=== PATIENT | female | born 1995 | race Caucasian/White ===

== ENCOUNTER 2021-09-17 10:00 | Outpatient (RCR) | payer MEDICAID, SELFPAY | END 2021-09-17 12:24 | disposition home or self-care (01) | LOC: HO.PT 10:00 | PROVIDERS: PCP Internal Medicine; Visit Provider General Practice | DX: M54.50 Low back pain, unspecified (principal) | CPT/HCPCS: 97110; 97161 ==

== ENCOUNTER 2024-04-25 17:35 | Outpatient (REF) | payer MEDICAID, SELFPAY ==
[2024-04-26 08:47] LABS: Bacterial Vaginosis PCR NEGATIVE (Negative); Candida Group PCR NOT DETECTED (Not Detect); Candida glab krusei PCR NOT DETECTED (Not Detect); Trichomonas vaginalis PCR NOT DETECTED (Not Detect)
== END 2024-04-25 17:36 | disposition home or self-care (01) ==
LOC: HO.HHCLNP 17:35
PROVIDERS: Visit Provider Advanced Practice Midwife
DX: N89.8 Other specified noninflammatory disorders of vagina (principal)
CPT/HCPCS: 0352U

== ENCOUNTER 2024-05-10 10:26 | Outpatient (REF) | payer MEDICAID, SELFPAY ==
[2024-05-10 11:16] LABS: MANUAL DIFF FLAG NO
[2024-05-10 11:21] LABS: Basophils Percent Auto 0.6 % (0-2); Eosinophils Absolute Auto 0.1 X10*3/uL (0.0-0.4); Eosinophils Percent Auto 0.9 % (0-4); Hematocrit 41.3 % (37.0-47.0); Hemoglobin 13.5 g/dl (12.0-16.0); Imm Gran Abs Auto 0.01 X10*3/uL (0.00-0.03); Imm Gran Pct Auto 0.2 % (0.0-0.4); Lymphocytes Absolute Auto 2.1 X10*3/uL (1.2-4.9); Lymphocytes Percent Auto 39.9 % (20-40); Mean Corpuscular HGB Conc 32.7 g/dl (31.0-35.0); Mean Corpuscular Volume 88.6 fL (80.0-98.0); Mean Platelet Volume 10.1 fL (9.4-12.3); Monocytes Absolute Auto 0.4 X10*3/uL (0.1-1.2); Monocytes Percent Auto 7.8 % (2-11); Neutrophils Absolute Auto 2.7 x10*3/uL (2.0-8.3); Neutrophils Percent Auto 50.6 % (45-73); Platelet Count 259 X10*3/uL (160-400); Red Blood Count 4.66 X10*6/uL (4.20-5.50); Red Cell Distribution Width 12.5 % (11.0-16.0); White Blood Count 5.4 X10*3/uL (4.8-10.8)
== END 2024-05-10 10:27 | disposition home or self-care (01) ==
LOC: HO.HHCL 10:26
PROVIDERS: Visit Provider Student in an Organized Health Care Education/Training Program
DX: T14.8XXA Other injury of unspecified body region, initial encounter (principal)
CPT/HCPCS: 36415; 85025

== ENCOUNTER 2024-05-11 10:49 | Outpatient (REF) | payer MEDICAID, SELFPAY ==
--- NOTE | ~2024-05-11 | US_ITS ---
EXAMINATION: US PELVIS CLINICAL INFORMATION: Worsening dysmenorrhea. COMPARISON: None available. TECHNIQUE: Ultrasound of the pelvis is performed using both transabdominal and transvaginal transducers along with Doppler. Transvaginal imaging is performed due to inadequate visualization transabdominally. FINDINGS: Uterus: The uterus is anteverted and measures 7.3 x 3.4 x 5.0 cm. The double wall endometrial thickness is 10 mm. The uterus is smooth in contour and has normal myometrial echogenicity. No visible fibroid. Adnexa: Both ovaries are visualized. There is normal color flow to the adnexa. There is no ovarian torsion. There is a xupmi-ux-badkygco amount of free pelvic fluid. Right ovary measures 2.5 x 2.6 x 1.9 cm for a volume of 8.2 mL cm. Left ovary measures 3.0 x 2.9 x 3.1 cm for a volume of 14.1 mL, which includes a benign 3 cm cyst. US/US pelvic and transvaginal IMPRESSION: No significant abnormality is seen.
== END 2024-05-11 10:50 | disposition home or self-care (01) ==
LOC: HO.US 10:49
PROVIDERS: PCP General Practice; Visit Provider Advanced Practice Midwife
DX: N94.6 Dysmenorrhea, unspecified (principal)
CPT/HCPCS: 76830; 76856

== ENCOUNTER 2025-01-08 | Outpatient (REF) | payer MEDICAID, SELFPAY ==
[2025-01-17 12:58] LABS: HPV Genotype 16 Negative (Negative); HPV Genotype 18 Negative (Negative); HPV High Risk Negative (Negative)
--- OUTSIDE RECORDS SUMMARY | 2025-04-19 13:24 | XMS_ITS | Clinical Summary ---
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 30 tablet 3 Active triamcinolone (Kenalog) 0.1 % ointmentIndicat ions:Dermatitis MIX WITH cerave AND APPLY TWICE DAILY DIRECTED 80 g 1 4 Active FLUoxetine (PROzac) 10 MG tablet Take 1 tablet (10 mg) by mouth in the morning. 90 tablet 3 4 Active SUMAtriptan (Imitrex) 25 MG tablet TAKE 1 TABLET BY MOUTH AT ONSET OF MIGRAINE. MAY REPEAT ONCE AFTER 2 HOURS NEEDED. DO NOT EXCEED 8 TABLETS IN 24 HOURS. FOR MIGRAINE, PAIN 8/10 OR MORE 10 tablet 6 4 Active Acetaminophen Extra Strength 500 MG tablet TAKE 2 TABLETS BY MOUTH EVERY 6 HOURS NEEDED FOR PAIN OR FEVER 50 tablet 4 Active omeprazole (PriLOSEC) [address] capsule TAKE 1 CAPSULE BY MOUTH EVERY DAY WITH DINNER 90 capsule 3 4 Active melatonin 5 MG tabletIndicatio ns:Primary insomnia TAKE 1 OR 2 TABLETS BY MOUTH EVERY DAY 20 MINUTES BEFORE BEDTIME 180 tablet 1 5 Active Drospirenone (Slynd) 4 MG tablet Take 1 tablet by mouth Once per day. 28 tablet 11 5 Active ammonium lactate (Lac-Hydrin) 12 % lotionIndicatio ns:Keratosis pilaris Apply topically if needed for dry skin. 225 g 3 5 02/17/20 26 Active amitriptyline (Elavil) 50 MG tablet Take 1 tablet (50 mg) by mouth at bedtime. 90 tablet 3 5 02/17/20 26 Active Active Problems Problem Noted Date Diagnosed Date Dental calculus 03/28/2025 Assessment & Plan (03/28/2025 12:22 PM EDT): Moderate radiographic calculus Tooth impaction 03/28/2025 Assessment & Plan (03/28/2025 12:22 PM EDT): 17 and 32 impacted patient reported no pain at this time and we will monitor Gingival bleeding 03/28/2025 Assessment & Plan (03/28/2025 12:22 PM EDT): Moderate Missing teeth, acquired 03/28/2025 Assessment & Plan (03/28/2025 12:29 PM EDT): Time Out: Timeout Date: 03/28/25, Timeout Time: 0920 (comp) Location: [facility] Tooth: Maxilla and Mandible Procedure: Exam, X-rays, and Prophylaxis Verified the above with patient, process assistant, and provider. Confirmed via patient's chart, intraorally and by radiographs. Laundry Supervisor: not applicable Medical Hx: Vitals: Last menstrual period 03/21/2025. Medications, Med Hx reviewed with patient and updated in chart. Treatment Provided Dental procedures in this visit D1110 - PROPHYLAXIS - ADULT (Completed) Service provider: Lita Landaverde provider: Freddy Dennis DDS D0210 - INTRAORAL - COMPLETE SERIES OF RADIOGRAPHIC IMAGES (Completed) Service provider: Lita Valle Billary provider: Freddy Dennis DDS D0120 - PERIODIC ORAL EVALUATION - ESTABLISHED PATIENT (Completed) Service provider: Freddy Dennis DDS Billing provider: Freddy Dennis DDS D1330 - ORAL HYGIENE INSTRUCTIONS (Completed) Service provider: Freddy Dennis DDS Billing provider: Freddy Dennis DDS D9450 - CASE PRESENTATION, DETAILED AND EXTENSIVE TREATMENT PLANNING (Completed) Service provider: Freddy Dennis DDS Billing provider: Freddy Dennis DDS Instruments Used: Ultrasonic Scalers, Hand Scalers, and Prophy angle Fluoride: N/A Oral Cancer Screening: No lesions bilateral mandibular kirt Head/Neck Exam: No Lesions Calculus: Moderate Plaque: Light Stain: Light Bleeding: Moderate Gingiva: Perio Charting Completed, Bleeding on probing, and Recession- localized OH: Fair Perio Chart: Completed Oral hygiene instructions provided to patient including brushing technique and flossing. Recommendations: [place] two times daily, modified perez technique Recall Frequency: 6 mo NV: 6 month recall Hygienist: Lita Valle Dysmenorrhea 03/22/2025 Pelvic pain 08/03/2024 Assessment & Plan (08/03/2024 1:01 PM EDT): Explained the findings of simple cyst on left ovary, no treatment usually for this as it will involute spontaneously. Described other causes of pelvic pain could be menstrual, but she declines progestin based treatments for this, or related to migraines and mood. We agreed to trial increasing her dose of Amytritiline from 50mg to 100mg at night to see if that is helpful in reducing pelvic pain. I will see her in followup in 3-4 months. Trapezius muscle spasm 09/02/2023 Assessment & Plan (09/02/2023 11:30 AM EST): Trigger point injections performed in clinic today, pt tolerated without apparent complication Keratosis pilaris 06/21/2023 Assessment & Plan (06/21/2023 10:32 AM EDT): Lac Hydrin nightly Epigastric pain 12/21/2022 Assessment & Plan (06/23/2023 9:23 AM EDT): Normal abdominal labs from 12/23/22 Exam without concerning findings, non-surgical abd H pylori neg 02/2023 continue Prilosec 20mg daily Increase fluids, bowel regimen No red flag symptoms Assessment & Plan (02/24/2023 10:00 AM EDT): Normal abdominal labs from 12/23/22 Exam without concerning findings, non-surgical Check H pylori Start Prilosec 20mg daily Increase fluids, bowel regimen Next refer to GI if H pylori is negative Assessment & Plan (12/21/2022 4:23 PM EST): Diffuse intermittent pain Will check CBC, lipase, CMP, urinalysis Increase fluids Breast lump 09/30/2022 Ganglion of wrist 04/04/2019 Chronic constipation 11/10/2018 Assessment & Plan (06/23/2023 9:23 AM EDT): Increase fiber and fluids Stool softener, fiber supplement daily, Miralax prn to achieve soft BM every 1-2 days Assessment & Plan (02/24/2023 10:01 AM EDT): Increase fiber and fluids Stool softener daily, Miralax prn Chronic insomnia 11/10/2018 Mood disorder 10/27/2017 Assessment & Plan (12/06/2023 10:45 AM EST): Has therapist through [facility] twice per month Add Prozac 10mg daily, f/u in 3-6 months Migraine 06/12/2016 Assessment & Plan (12/06/2023 10:45 AM EST): Encourage more regular use of preventative Amitriptyline, rather than frequent use of Sumatriptan Assessment & Plan (02/24/2023 10:02 AM EDT): Amitriptyline as prophylaxis 50mg at night May help with insomnia as well Exercise, eat varied diet Resolved Problems Problem Noted Date Diagnosed Date Resolved Date Viral upper respiratory tract infection 09/13/2024 02/19/2025 Assessment & Plan (09/13/2024 9:41 AM EST): Pt with negative covid, flu and strep Exam consistent with diffuse viral URI Right ear slightly full but col visible, Pulmonary exam wnl, If symptoms worsen or focal pain in right ear, or fail to resolve, Return to clinic Encouraged fluids and supportive otc medications for symptoms as needed Encounters Date Type Department Care Team Description 03/28/2025 9:30 AM EDT Office Visit [facility] ADULT DENTAL [address] [place] [phone] Lita Valle Dental calculus (Primary Dx); Tooth impaction; Gingival bleeding; Missing teeth, acquired 03/26/2025 10:00 AM EDT Office Visit [address] [address] Millicent Dominguez CNM Dysmenorrhea (Primary Dx) 03/26/2025 Travel 03/23/[address] [address] Millicent Dominguez CNM chart prep 03/06/2025 2:00 PM EDT Office Visit [facility] OPTOMETRY [address] [place] [address] Beena Reed, OD Myopia of both eyes (Primary Dx) 02/16/2025 2:15 PM EDT Office Visit [address] [address] Sayra Link MD Mood disorder ([facility]) (Primary Dx); Keratosis pilaris; Pelvic pain; Chronic insomnia; Epigastric pain; Ganglion of right wrist; Chronic migraine without aura without status migrainosus, not intractable 02/16/2025 Travel 02/14/[address] [address] Sayra Link MD Chart Prep 02/07/2025 Patient Outreach [address] [address] Sayra Link MD Pre-visit Planning (SDOH screening negative and tobacco screening negative) 02/05/2025 9:00 AM EDT Office Visit [facility] OPTOMETRY [address] [place] [address] DerekEmeterion, OD Myopia of both eyes (Primary Dx); 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 02/05/2025 Travel 01/26/2025 4:00 PM EDT Office Visit [facility] MEDICINE [address] [place] [address] Jennie Valerio MD Bruising (Primary Dx) 01/26/2025 Travel 01/22/2025 Telephone [facility] MEDICINE [address] [place] [address] Milly Soto, wire winder Orders from Last 3 Months Immunizations Immunization Administration Dates Next Due DTaP 1998, 6,06/01/1995,03/12,01/22/1995 HPV 9-Valent 12/06/2023 HPV, Quadrivalent 07/19/2013 Hep B, Adolescent or Pediatric 06/01/1995,1994,01/22/1995 Hep B, adult 12/28/2018 Hib ([facility]) 03/15/1996, 5,03/12/1995,01/22 IPV 1998, 5,03/12/1995,01/22 Influenza Injectable Quadriv alant Preservative Free IIV4 MDCK 08/21/2020 Influenza injectable quadriv alent IIV4 with preservative 12/28/2019 Influenza injectable quadriv alent preservative free 08/30/2023,12/12/2021,08/16/2017,10/23 Influenza, IIV3, injectable 09/18/2014 Influenza, Split (incl. mary fied surface antigen) 07/19/2013 MMR 1998,12/06/1995 Meningococcal MCV4P ACYW-135 07/19/2013 Moderna Covid-19 Vaccine 12+ 03/05/2021,02/06/20 21 Moderna Covid-19 Vaccine 6+ Bivalent 11/13/2022 Tdap 10/23/2016,06/17/2006 Family History Medical History Relation Name Comments Ovarian cancer Cousin Breast cancer Maternal Grandmother Ovarian cancer Maternal Grandmother Breast cancer Mother's Sister Breast cancer Other Relation Name Status Comments Cousin Alive Maternal Grandmother Mother's Sister Other Maternal great aunt Social History Tobacco Use Types Packs/Day Years Used Date Smoking Tobacco: Never Smokeless Tobacco: Never Tobacco Cessation:Counseling Given: Not Answered Alcohol Use Standard Drinks/Week Comments Never 0 (1 standard drink = 0.6 oz pur e alcohol) Alcohol Answer Date Recorded How often do you have a drink containing alcohol ? 0 02/19/2025 How many drinks containing a lcohol do you have on a typical day when you are drinking? 0 02/19/2025 How often do you have six or more drinks on one occasion? 0 02/19/2025 Depression Answer Date Recorded Patient Health Questionnaire-9 Score 17 02/16/2025 Patient Health Questionnaire-9 Score 17 02/16/2025 Last PHQ-9: Questionnaire Data Not on file 0 02/16/2025 Housing Stability Answer Date Recorded What is your housing situation today? I have mahi judi 02/07/[address] you li ve. Do you have problems with any of the following? None of the above 02/07/2025 Food Insecurity Answer Date Recorded Within the past 12 months, y ou worried that your food would run out before you got money to buy more: Never True 02/07/2025 Within the past 12 months,th e food you bought just didn't last and you didn't have enough money to get more: Never True Transportation Answer Date Recorded In the past 12 months, has l ack of transportation kept you from medical appts, meetings, work or from getting things needed for daily living? No 02/07/2025 Utilities Answer Date Recorded In the past 12 months, has t he electric, gas, oil or water company threatened to shut off services in your home? No 02/07/2025 Depression Answer Date Recorded Patient Health Questionnaire-2 Score 5 02/16/2025 Internet Access Answer Date Recorded Internet Access Q1 Yes 02/07/2025 Internet Access Q2 Not on file 02/07/2025 Comments No Intention Date Recorded No desire to become (finding) 0 03/26/2025 Sex and Gender Information Value Date Recorded Sex Assigned at Female 08/24/2022 10:25 AM EDT Legal Sex Female 10:25 AM EDT Gender Identity Female 08/24/2022 10:25 AM EDT Sexual Orientation Asexual 12/06/2023 9: 50 AM EST Last Filed Vital Signs Vital Sign Reading Time Taken Comments Blood Pressure 110/80 03/26/2025 9:44 AM EDT Pulse 85 03/26/2025 9:44 AM EDT Temperature 37.3 C (99.1 F) 03/26/2025 9:44 AM EDT Respiratory Rate 16 03/26/2025 9:44 AM EDT Oxygen Saturation 99% 03/26/2025 9:44 AM EDT Inhaled Oxygen Concentration - - Weight 59.6 kg (131 lb 6.4 oz) 03/26/2025 9:44 A M EDT Height 154.9 cm (5' 1 ) 03/26/2025 9:44 AM EDT Body Mass Index 24.83 03/26/2025 9:44 AM EDT Plan of Treatment Upcoming Encounters Date Type Department Care Team (Late st Contact Info) Description 10/08/2025 3:00 PM EST Office Visit [facility] ADULT DENTAL [address] [place] [address] Sunny, Valentina [address] [place] [address] Health Maintenance Due Date Last Done Comments HPV Vaccines (3 - 3-dose series) 02/28/2024 12/06/2023, 07/19/2013 COVID-19 Vaccine ( season) 2024 11/13/2022, 03/05/2021, 02/05/2021 Influenza Vaccine (Season Ended) 2025 08/30/2023, 12/12/2021, 08/21/2020, Additional history exists Depression Monitoring 08/18/2025 02/16/2025, 025 Dental Oral Exam 09/28/2025 03/28/2025, 09/2022, 01/29/2022, Additional history exists Dental Prophylaxis 09/28/2025 03/28/2025, 1 , 01/29/2022, Additional history exists SDOH Screening 02/07/2026 02/07/2025 Disability Screening 02/16/2026 02/16/2025 Alcohol/Substance Use Screening 02/19/2026 02/19/2025 Family Planning (PISQ) 03/26/2026 03/26/2025 Tobacco Screening 03/28/2026 03/28/2025 Dental X-Ray: Bitewings 03/29/2026 03/28/20, 01/29/2022, 08/10/2019, Additional history exists DTaP/Tdap/Td Vaccines (8 - Td or Tdap) 10/23/2026 10/23/2016, 06/17/2006, 1998, Additional history exists Dental X-Ray: Full Mouth 03/29/2028 03/28/2025, 07/25 Cervical Cancer Screening 01/08/2030 HPV/Cotest 01/08/2030 01/08/2025 Pap Smear 01/08/2030 01/08/2025, 01/07/2022 Zoster Vaccines (1 of 2) 2044 RSV Patients and Patients Aged 60 years or older (1 - 1-dose 75+ series) 2069 HIB Vaccines Completed 03/15/1996, 05/1995, 03/12/1995, Additional history exists IPV Vaccines Completed 1998, 05/1995, 03/12/1995, Additional history exists Meningococcal Vaccine Completed 07/19/2013 Hepatitis B Vaccines Completed 12/28/2018, 06/01/1995, 05/02/1995, Additional history exists HIV Screening Completed 01/08/2025 Hepatitis C Screening Completed 01/08/2025 Hepatitis A Vaccines Aged Out No long er eligible based on patient's age to complete this topic Meningococcal B Vaccine Aged Out No l onger eligible based on patient's age to complete this topic Pneumococcal Vaccine: Pediatrics (0 to 5 Years) and At-Risk Patients (6 to 49) Years Aged Out No longer eligible based on patient's age to complete this topic RSV under 20 months Aged Out No longe r eligible based on patient's age to complete this topic Rotavirus Vaccines Aged Out No longer eligible based on patient's age to complete this topic Procedures Procedure Name Priority Date/Time Associated Diagnosis Comments CASE PRESENTATION, DETAILED AND EXTENSIVE TREATMENT PLANNING Routine 03/28/2025 9:30 AM EDT Dental calculus Tooth impaction Gingival bleeding Missing teeth, acquired ORAL HYGIENE INSTRUCTIONS Routine 03/28/2025 9:30 AM EDT Dental calculus Gingival bleeding PERIODIC ORAL EVALUATION - ESTABLISHED PATIENT Routine 03/28/2025 9:30 AM EDT Dental calculus Tooth impaction Gingival bleeding Missing teeth, acquired INTRAORAL - COMPLETE SERIES OF RADIOGRAPHIC IMAGES Routine 03/28/2025 9:30 AM EDT Dental calculus Tooth impaction Gingival bleeding Missing teeth, acquired PROPHYLAXIS - ADULT Routine 03/28/2025 9 :30 AM EDT Dental calculus Gingival bleeding OCT, OPTIC NERVE - OU - BOTH EYES Routine 02/05/2025 9:00 AM EDT 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 HEPATITIS C AB W/REFL TO HCV RNA, QN, PCR Routine 01/08/2025 10:07 AM EDT Screening examination for venereal disease HIV 1/2 ANTIGEN/ANTIBODY, FOURTH GENERATION W/RFL Routine 01/08/2025 10:07 AM EDT Screening examination for venereal disease HPV DNA, LOW/HIGH RISK Routine 01/08/2025 9:17 AM EDT Dysmenorrhea PAP SMEAR Routine 01/08/2025 9:17 AM EDT Cervical cancer screening from Last 3 Months or Most Recently Relevant to Health Maintenance Results * OCT, Optic Nerve - OU - Both Eyes (02/05/2025 9:00 AM EDT) Beena Joel, OD - 03/05/2025 11:49 AM EDT Images from the original result were not included. Right Eye Images reviewed. To assess optic nerve function and for use in future follow-up. Reliability: good and adequate. Left Eye Images reviewed. To assess optic nerve function and for use in future follow-up. Reliability: good and adequate. 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 No treatment necessary. Will monitor at her next exam. us Beena Reed OD OPHTH TOMOGRAPHY Final Result * Hepatitis C Antibody with Reflex to HCV, RNA, Quantitative, Real-Time PCR (01/08/2025 10:07 AM EDT) Hepatitis C Antibody Nonreactive Nonreactive [facility] Comment:Antibodies to HCV no t detected; does not exclude early acuteHCV infection. Blood Venous blood specimen / Unknown 01/08/2025 10:07 AM EDT 01/08/2025 11:18 AM EDT [facility] LAB BLOOD ORDERABLES Cherie l Result Performing Organization Address [facility] Co de Phone Number [facility] [address] [place] [phone] * HIV-1/2 Antigen and Antibodies, Fourth Generation, with Reflexes (01/08/2025 10:07 AM EDT) Pathologist [facility] HIV AB/AG Nonreactive Nonreactive [facility] Comment:HIV-1 p24 Ag and/or HIV-1/HIV-2 Ab not detected.A test result that is nonreactive does not exclude thepossibility of exposure to or infection with HIV-1 and/orHIV-2. Nonreactive results in this assay for individualswith prior exposure to HIV-1 and/or HIV-2 may be due toantigen and antibody levels that are below the limit ofdetection of this assay.The [employer] HIV Ag/Ab Combo assay result andsupplemental assay results should be interpreted inconjunction with the patient's clinical presentation,history and other laboratory results. If the results areinconsistent with clinical evidence, additional testing issuggested to confirm the result. Blood Venous blood specimen / Unknown 01/08/2025 10:07 AM EDT 01/08/2025 11:18 AM EDT [facility] LAB BLOOD ORDERABLES Cherie l Result Performing Organization Address City/[facility]/ZIP Co de Phone Number [facility] [address] [place] [phone] * HPV DNA, Low/High Risk (01/08/2025 9:17 AM EDT) HPV High Risk Negative Negative [facility] HPV Genotype 16 Negative Negative [facility] HPV Genotype 18 Negative Negative [facility] Comment:HPV testing performe d at [facility] (CLIA#[id number]), [address] [place] [phone].Testing for HPV was performed using the [employer] RADHA 6800system. The presence of HPV in the female genital tract isassociated with a number of diseases, including cervicalcarcinoma. The HPV DNA high risk pool tests for HPV 31, 33,35, 39, 45, 51, 52, 56, 58, 59, 66 and 68. The testing forHPV 16 and 18 genotypes has also been performed. A positiveresult indicates detection of nucleic acid sequences fromone or more subtypes, whereas a negative result indicatessuch sequences were not detected. 01/08/2025 9:17 AM EDT 01/09/2025 6:00 AM EDT Millicent RAIN LAB BLOOD ORDERABLES Cherie saravia Result [facility] [address] [place] [address] [phone] * Pap Smear (01/08/2025 9:17 AM EDT) Swab Cervix uteri structure / Unknown 01/08/2025 9:17 AM EDT 01/09/2025 6:00 AM EDT Yeimi [facility] - 01/24/2025 12:33 PM EDT ----- ------- Name: Gely Amaro Age/Sex: 29/F : 1995 Unit#: [id number] Attend Dr: Re01/08/25 Status: PRE REF Location: [facility] Disch: ----- ------- SPEC : [id number] RECD: 01/09/25 STATUS: DELMAR GONZALES NUM: [id number] CHEIKH: 01/08/[address] [facility] [address]: MILLICENT DOMINGUEZ [facility] ENTERED: 01/09/25 SP TYPE: Pap Smr OT DR: ORDERED: Pap Smear Interpretation Satisfactory for evaluation. Negative for intraepithelial lesion or malignancy. Mild inflammation. 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
== END 2025-01-08 00:01 | disposition home or self-care (01) ==
LOC: HO.LNP
PROVIDERS: Visit Provider Advanced Practice Midwife
DX: Z13.89 Encounter for screening for other disorder (principal)
CPT/HCPCS: 87626; 88175

== ENCOUNTER 2025-01-08 10:05 | Outpatient (REF) | payer MEDICAID, SELFPAY ==
[2025-01-08 12:32] LABS: HIV AB/AG Nonreactive (Nonreactive); HIV Num 1 0.05 S/CO (0.00-0.99); Syphilis Screen Nonreactive (Nonreactive); ~HepC Num1 0.12 S/CO (0.00-0.79); ~Hepatitis C Antibody Nonreactive (Nonreactive)
== END 2025-01-08 10:06 | disposition home or self-care (01) ==
LOC: HO.HHCL 10:05
PROVIDERS: Visit Provider Advanced Practice Midwife
DX: Z11.3 Encounter for screening for infections with a predominantly sexual mode of transmission (principal)
CPT/HCPCS: 36415; 86780; 86803; 87389

== ENCOUNTER 2025-06-05 10:12 | Outpatient (REF) | payer MEDICAID, SELFPAY ==
[2025-06-05 11:55] LABS: Alanine Aminotransferase 29 U/L (0-31); Albumin Level 4.9 g/dL (3.5-5.0); Alkaline Phosphatase 66 U/L (39-117); Anion Gap 13 (12-20); Aspartate Amino Transferase 28 U/L (5-31); Blood Urea Nitrogen 13 mg/dL (9-16); Calcium 9.8 mg/dL (8.4-10.2); Carbon Dioxide 25 mmol/L (22-29); Chloride 107 mmol/L (96-108); Estimated Glomerular Filt Rate > 60; Potassium 3.8 mmol/L (3.3-5.1); Sodium 141 mmol/L (135-145); Total Protein 8.0 g/dL (6.5-8.0)
[2025-06-05 12:49] LABS: Alanine Aminotransferase 31 U/L (0-31); Albumin Level 4.9 g/dL (3.5-5.0); Alkaline Phosphatase 68 U/L (39-117); Anion Gap 14 (12-20); Aspartate Amino Transferase 33 U/L (5-31); Blood Urea Nitrogen 13 mg/dL (9-16); Calcium 9.8 mg/dL (8.4-10.2); Carbon Dioxide 25 mmol/L (22-29); Chloride 107 mmol/L (96-108); Cholesterol 189 mg/dL (<200); Estimated Glomerular Filt Rate > 60; HDL Cholesterol 72 mg/dL (>40); Potassium 3.8 mmol/L (3.3-5.1); Sodium 142 mmol/L (135-145); Thyroid Stimulating Hormone 2.11 uIU/mL (0.32-4.0); Total Protein 7.9 g/dL (6.5-8.0); Triglycerides 76 mg/dL (<150)
== END 2025-06-05 10:13 | disposition home or self-care (01) ==
LOC: HO.HHCL 10:12
PROVIDERS: PCP General Practice
DX: Z79.899 Other long term (current) drug therapy (principal); R10.2 Pelvic and perineal pain
CPT/HCPCS: 36415; 80053; 80061; 82248; 84436; 84443

== ENCOUNTER 2025-10-09 10:53 | Outpatient (REF) | payer MEDICAID, SELFPAY ==
--- NOTE | ~2025-10-09 | XR_ITS ---
Exam: XR HAND 2 VIEWS BILATERAL, bilateral hand x-rays TECHNIQUE: AP and lateral views upper extremity, bilateral hands INDICATION: PAIN COMPARISON: None available. FINDINGS: RIGHT HAND: No acute fracture, degenerative changes, erosions, or other abnormalities. LEFT HAND: No acute fracture, degenerative changes, erosions, or other abnormalities. XR/XR Hand Uzair 2V IMPRESSION: Right hand: Unremarkable right hand Left hand: Unremarkable left hand Electronically signed by: Reuben Lozano MD 10/09/2025 11:25 AM [facility]
--- NOTE | ~2025-10-09 | XR_ITS ---
EXAMINATION: XR FOOT, LEFT CLINICAL INFORMATION: pain after standing COMPARISON: None available. TECHNIQUE: AP, lateral, and oblique views of the left foot. FINDINGS: No acute fracture. No degenerative changes. No deformity, joint diastases, or malalignment. XR/XR foot LT min 3V IMPRESSION: Unremarkable left foot Electronically signed by: Reuben Lozano MD 10/09/2025 11:23 AM [facility]
--- OUTSIDE RECORDS SUMMARY | 2025-10-09 10:15 | XMS_ITS | Encounter Summary ---
Author Organization [employer] Address [address] [facility] [address] [place] [address] Care Team Providers Care Brush Maker Name Role Phone Sayra Link MD Primary Care Provider [phone] Reason for Visit * Reason Comments Follow-up Encounter Details Date Type Department Care Team ([facility] Contact Info) Description 10/09/2025 10:15 AM EST Office Visit [facility] MEDICINE [address] [place], [place] [phone] Sayra Link MD [address] [place], [place] [phone] Difficulty urinating (Primary Dx); Dietary counseling; Exercise counseling; Keratosis pilaris; Pain in both hands; Left foot pain; Mood disorder (CMS/HCC); Primary insomnia; Chronic migraine without aura without status migrainosus, not intractable Social History Tobacco Use Types Packs/Day Years [...] Answer Date Recorded Patient Health Questionnaire-9 Score 20 10/09/2025 Patient Health Questionnaire-9 Score 20 10/09/2025 Last PHQ-9: Questionnaire Data Not on file 1 12/10/2024 Housing Stability Answer Date Recorded What is your housing situation today? I have [employer] 02/07/[address] you li [...] Date Recorded Patient Health Questionnaire-2 Score 5 10/09/2025 Internet Access Answer Date Recorded Internet Access Q1 Yes 02/07/2025 Internet Access Q2 Not on file 02/07/2025 Comments No Sex and Gender Information Value Date Recorded Sex Assigned at Female 08/24/2022 10:25 AM EDT Legal Sex Female 10:25 AM EDT Gender Identity Female 08/24/2022 10:25 AM EDT Sexual Orientation Asexual 12/06/2023 9: 50 AM EST documented as of this encounter Last Filed Vital Signs Vital Sign Reading Time Taken Comments Blood Pressure 110/80 10/09/2025 9:50 AM EST Pulse 98 10/09/2025 9:50 AM EST Temperature - - Respiratory Rate 18 10/09/2025 9:50 AM EST Oxygen Saturation 97% 10/09/2025 9:50 AM EST Inhaled Oxygen Concentration - - Weight 60.6 kg (133 lb 9.6 oz) 10/09/2025 9:50 A M EST Height 154.9 cm (5' 1 ) 10/09/2025 9:50 AM EST Body Mass Index 25.24 10/09/2025 9:50 AM EST documented in this encounter Functional Status * Over the past 2 weeks, how often have you been bothered by any of the following problems? Question Answer Date of Assessment Author Patient Health Questionnaire-2 Score 5 10/09/2025 11:31 AM EST Ema Tinajero MA * Little interest or pleasure in doing things Answer Date of Assessment Author More than half the days 10/09/2025 11:31 AM Ema Williamson MA * Feeling down, depressed, or hopeless Answer Date of Assessment Author Nearly every day 10/09/2025 11:31 AM Ema Abbasi MA * Trouble falling or staying asleep, or sleeping too much Answer Date of Assessment Author More than half the days 10/09/2025 11:31 AM Ema Williamson MA * Feeling tired or having little energy Answer Date of Assessment Author More than half the days 10/09/2025 11:31 AM Ema Williamson MA * Poor appetite or overeating Answer Date of Assessment Author Nearly every day 10/09/2025 11:31 AM Ema Abbasi MA * Feeling bad about yourself - or that you are a failure or have let yourself or your family down Answer Date of Assessment Author Nearly every day 10/09/2025 11:31 AM Ema Abbasi MA * Trouble concentrating on things, such as reading the newspaper or watching television Answer Date of Assessment Author More than half the days 10/09/2025 11:31 AM Ema Williamson MA * Moving or speaking so slowly that other people could have noticed? Or the opposite - being so fidgety or restless that you have been moving around a lot more than usual. Answer Date of Assessment Author Several days 10/09/2025 11:31 AM Ema Guardado MA * Thoughts that you would be better off or hurting yourself in some way Answer Date of Assessment Author More than half the days 10/09/2025 11:31 AM Ema Williamson MA * Patient Health Questionnaire-9 Score Answer Date of Assessment Author 10/09/2025 11:31 AM Ema Guardado MA * Over the last 2 weeks, how often have you been bothered by any of the following problems? Question Answer Date of Assessment Author Feeling nervous, anxious, or on edge 3 10/09/2025 11:31 AM Ema Williamson MA Not being able to stop or control worrying 2 10/09/2025 11:31 AM Ema Williamson MA Worrying too much about different things 3 10/09/2025 11:31 AM Ema Williamson MA Trouble relaxing 2 10/09/2025 11:31 AM Ema Williamson MA Being so restless that it is hard to sit still 2 10/09/2025 11:31 AM Ema Williamson MA Becoming easily annoyed or irritable 2 10/09/2025 11:31 AM Ema Williamson MA Feeling afraid as if something awful might happen 3 10/09/2025 11:31 AM Ema Abbasi MA DAYRON-7 Total Score 17 10/09/2025 11:31 AM Ema Williamson MA * How difficult have these problems made it for you to do your work, take care of things at home, or get along with other people? Answer Date of Assessment Author Very difficult 10/09/2025 11:31 AM Ema Guardado MA documented as of this encounter Plan of Treatment Upcoming Encounters Date Type Department Care Team (Late st Contact Info) Description 12/06/2025 9:30 AM EST Office Visit [facility] ADULT DENTAL [address] [place] [address] Sunny, Valentina [address] [place] [address] Scheduled Orders Name Type Priority Associated Diagnoses Orde r Schedule Urinalysis, Complete, with Reflex to Culture Lab Routine Difficulty urinating Expected: 10/09/2025 (Approximate), Expires: 10/09/2026 Basic Metabolic Panel Lab Routine Difficulty urinating Expected: 10/09/2025 (Approximate), Expires: 10/09/2026 Bacterial Vaginosis Panel Microbiology Routine Difficulty urinating Ordered: 10/09/2025 XR Hand 1-2 Views Bilateral Imaging Routine Pain in both hands Expected: 10/09/2025, Expires: 10/09/2026 documented as of this encounter Procedures Procedure Name Priority Date/Time Associated Diagnosis Comments XR FOOT 3+ VIEWS LEFT Routine 10/09/2025 11:26 AM EST Left foot pain documented in this encounter Results * XR Foot 3+ Views Left (10/09/2025 11:26 AM EST) Anatomical Region Laterality Modality Lower Extremities, Foot Left Radiogra phic Imaging 10/09/2025 11:2 6 AM EST Narrative 10/09/2025 11:25 AM EST [address] [address] XRay Report Signed Patient: Gely Amaro MR# : [id number] : 1995 Acct:[id number] Age/Sex: 29 / F ADM Date: 10/09/25 Loc: .HHCX Attending Dr: Sayra Link MD Ordering Physician: Sayra Link Date of Service: 10/09/25 Procedure(s): XR foot LT min 3V Accession Number(s): [id number] cc: Sayra Link Reason for Exam: pain after standing EXAMINATION: XR FOOT, LEFT CLINICAL INFORMATION: pain after standing COMPARISON: None available. TECHNIQUE: AP, lateral, and oblique views of the left foot. FINDINGS: No acute fracture. No degenerative changes. No deformity, joint diastases, or malalignment. XR/XR foot LT min 3V IMPRESSION: Unremarkable left foot Electronically signed by: Reuben Lozano MD 10/09/2025 11:23 AM EST Dictated By: Reuben Lozano MD Signed By: <Electronically signed by Reuben Lozano MD in OV> 10/09/25 1123 DD/ 1126 TD/TT: 10/09/25 1119 Channel Cementer Outsole Machine: Procedure Note Donotuseinterpreter, Image - 10/09/[address] [address] XRay Report Signed Patient: Gely Amaro MMR# : [id number] : 1995Acct:[id number] Age/Sex: 29 / FADM Date: 10/09/25 Loc: HO.HHCX Attending Dr: Sayra Link MD Ordering Physician: Sayra Link Date of Service: 10/09/25 Procedure(s): XR foot LT min 3V Accession Number(s): [id number] cc: Sayra Link Reason for Exam: pain after standing EXAMINATION: XR FOOT, LEFT CLINICAL INFORMATION: pain after standing COMPARISON: None available. TECHNIQUE: AP, lateral, and oblique views of the left foot. FINDINGS: No acute fracture. No degenerative changes. No deformity, joint diastases, or malalignment. XR/XR foot LT min 3V IMPRESSION: Unremarkable left foot Electronically signed by: Reuben Lozano MD 10/09/2025 11:23 AM EST RP Dictated By: Reuben Lozano MD Signed By: <Electronically signed by Reuben Lozano MD in OV> 10/09/25 1123 DD/ 1126 TD/TT: 10/09/25 1119 Channel Cementer Outsole Machine: Sayra Link MD IMG XR PROCEDURES Edited Resul t - Final documented in this encounter Visit Diagnoses Diagnosis Difficulty urinating- Primary Other symptoms involving urinary system Dietary counseling Dietary surveillance and counseling Exercise counseling Keratosis pilaris Other specified congenital anomaly of skin Pain in both hands Left foot pain Pain in soft tissues of limb Mood disorder (CMS/HCC) Unspecified episodic mood disorder Primary insomnia Persistent disorder of initiating or maintaining sleep Chronic migraine without aura without status migrainosus, not intractable documented in this encounter Additional Health Concerns Assessment Noted Time PHQ-9 Depression Total Score: 20 025 11:31 AM EST documented as of this encounter Care Teams Brush Maker Relationship Specialty Start Date End Date Sayra Link MD [address] [place] [id number] PCP - General Family Medicine 10/03/20 documented as of this encounter
--- OUTSIDE RECORDS SUMMARY | 2025-10-09 14:13 | XMS_ITS | Encounter Summary ---
Author Organization [employer] Address [address] [facility] [address] [place] [address] Care Team Providers Care Snow Removing Supervisor Name Role Phone Sayra Link MD Primary Care Provider Encounter Details Date Type Department Care Team (Latest Contact Info) Description 01/29/2022 Abstract [facility] CONVERSIONS Dental, Provider, DDS Social History Tobacco Use Types Packs/Day Years Used Date Smoking Tobacco: Never Assessed Comments Unknown Sex and Gender Information Value Date Recorded Sex Assigned at Female 08/24/2022 10:25 AM EDT Legal Sex Female 10:25 AM EDT Gender Identity Female 08/24/2022 10:25 AM EDT Sexual Orientation Asexual 12/06/2023 9: 50 AM EST documented as of this encounter Plan of Treatment Upcoming Encounters Date Type Department Care Team ( st Contact Info) Description 12/06/2025 9:30 AM EST Office Visit [facility] ADULT DENTAL [address] [place] [phone] Sunny Valentina [address] [place] [address] documented as of this encounter Visit Diagnoses Not on filedocumented in this encounter Care Teams Snow Removing Supervisor Relationship Specialty Start Date End Date Sayra Link MD [address] [place] [address] PCP - General Family Medicine 10/03/20 documented as of this encounter
--- OUTSIDE RECORDS SUMMARY | 2025-10-09 14:13 | XMS_ITS | Clinical Summary ---
Author Organization [employer] Address [address] [facility] 7[address] [place] [address] Care Team Providers Care Gravity Prospector Name Role Phone Sayra Link MD Primary Care Provider [phone] Allergies Active Allergy Reactions Criticality Noted Date Comments Dog Epithelium 09/30/2022 Fish Allergy 02/22/2023 Kiwi Extract Itching 05/28/2021 Pineapple 12/21/2022 Pineapple Extract 05/28/2021 Medications ibuprofen 400 MG tablet Take 1 tablet (400 mg) by mouth every 8 (eight) hours if needed for moderate pain or fever for up to 30 doses. 30 tablet 09/14/20 23 Active triamcinolone (Kenalog) 0.1 % ointmentIndicat ions:Dermatitis MIX WITH cerave AND APPLY TWICE DAILY DIRECTED 80 g 1 11/02/19 24 Active Acetaminophen Extra Strength 500 MG tablet TAKE 2 TABLETS BY MOUTH EVERY 6 HOURS NEEDED FOR PAIN OR FEVER 50 tablet 05/10/20 24 Active melatonin 5 MG tabletIndicatio ns:Primary insomnia TAKE 1 OR 2 TABLETS BY MOUTH EVERY DAY 20 MINUTES BEFORE BEDTIME 180 tablet 1 11/20/19 25 Active omeprazole (PriLOSEC) [address] capsule TAKE 1 CAPSULE BY MOUTH EVERY DAY WITH DINNER 90 capsule 3 5 9:44 AM EST 10/01/20 25 Active amitriptyline (Elavil) 25 MG tabletIndicatio ns:Mood disorder (CMS/HCC),Prima ry insomnia Take 25 mg by mouth at bedtime. 10/04/20 25 Active ammonium lactate (Lac-Hydrin) 12 % lotionIndicatio ns:Keratosis pilaris Apply topically if needed for dry skin. 225 g 3 10/09/20 25 026 Active SUMAtriptan (Imitrex) 25 MG tabletIndicatio ns:Chronic migraine without aura without status migrainosus, not intractable Take 1 tablet (25 mg) by mouth 1 (one) time if needed for migraine. May repeat dose once in 2 hours if no relief. Do not exceed 2 doses in 24 hours. 10 tablet 6 10/09/20 Active FLUoxetine (PROzac) 10 MG tabletIndicatio ns:Mood disorder (CMS/HCC) Take 1 tablet (10 mg) by mouth Once per day. 90 tablet 3 10/09/20 25 026 Active FLUoxetine (PROzac) 10 MG tablet Take 1 tablet (10 mg) by mouth in the morning. 90 tablet 3 12/06/19 24 025 Discontinued(Re order (will not trigger notification to Pharmacy)) SUMAtriptan (Imitrex) 25 MG tablet TAKE 1 TABLET BY MOUTH AT ONSET OF MIGRAINE. MAY REPEAT ONCE AFTER 2 HOURS NEEDED. DO NOT EXCEED 8 TABLETS IN 24 HOURS. FOR MIGRAINE, PAIN 8/10 OR MORE 10 tablet 6 04/10/20 24 025 Discontinued(Re order (will not trigger notification to Pharmacy)) omeprazole (PriLOSEC) [address] capsule TAKE 1 CAPSULE BY MOUTH EVERY DAY WITH DINNER 90 capsule 3 08/23/20 24 025 Discontinued Drospirenone (Slynd) 4 MG tablet Take 1 tablet by mouth Once per day. 28 tablet 11 01/09/20 25 025 Discontinued( erapy completed) ammonium lactate (Lac-Hydrin) 12 % lotionIndicatio ns:Keratosis pilaris Apply topically if needed for dry skin. 225 g 3 02/17/20 25 025 Discontinued(Re order (will not trigger notification to Pharmacy)) amitriptyline (Elavil) 50 MG tablet Take 1 tablet (50 mg) by mouth at bedtime. 90 tablet 3 02/17/20 25 025 Discontinued(Th erapy completed) Active Problems Problem Noted Date Diagnosed Date [...] Time Out: Timeout Date: 03/28/25, Timeout Time: 919 (comp) Location: [facility] Tooth: Maxilla and Mandible Procedure: Exam, X-rays, and Prophylaxis Verified the above with patient, rn first assistant, and provider. Confirmed via patient's chart, intraorally and by radiographs. Brick Baker: not applicable Medical Hx: Vitals: Last menstrual [...] PATIENT (Completed) Service provider: Freddy Dennis DDS [place] provider: Freddy Dennis DDS [id number] - ORAL [...] patient including brushing technique and flossing. Recommendations: [place] two times daily, modified perez technique Recall [...] Encounters Date Type Department Care Team Description 10/09/2025 10:15 AM EST Office Visit [facility] MEDICINE [address] [place] [address] Sayra Link MD Difficulty urinating (Primary Dx); Dietary counseling; Exercise counseling; Keratosis pilaris; Pain in both hands; Left foot pain; Mood disorder (CMS/HCC); Primary insomnia; Chronic migraine without aura without status migrainosus, not intractable 10/09/2025 Orders Only [facility] MEDICINE [address] [place] [address] Sayra Link MD 10/09/2025 Travel 10/08/2025 Telephone [facility] MEDICINE [address] [place] [address] Sayra Link MD Chart Prep 10/01/2025 Refill [facility] MEDICINE [address] [place] [address] Sayra Link MD 09/28/2025 Patient Outreach [address] [address] Sayra iLnk MD Pre-visit Planning ([facility] screening completed on 02/07/2025) from Last 3 Months Immunizations Immunization Administration Dates Next Due DTaP 1998, 6,06/01/1995,03/12,01/22/1995 HPV 9-Valent 12/06/2023 HPV, Quadrivalent 07/19/2013 Hep B, Adolescent or Pediatric 06/01/1995,1994,01/22/1995 Hep B, adult 12/28/2018 Hib (HbOC) 03/15/1996, 5,03/12/1995,01/22 IPV 1998, 5,03/12/1995,01/22 Influenza Injectable [...] t he electric, gas, oil or water [employer] threatened to shut off services in your [...] Pulse 98 10/09/2025 9:50 AM EST Temperature 37.3 C (99.1 F) 03/26/2025 9:44 AM EDT Respiratory Rate 18 10/09/2025 9:50 AM EST Oxygen Saturation 97% 10/09/2025 9:50 AM EST Inhaled Oxygen Concentration - - Weight 60.6 kg (133 lb 9.6 oz) 10/09/2025 9:50 A M EST Height 154.9 cm (5' 1 ) 10/09/2025 9:50 AM EST Body Mass Index 25.24 10/09/2025 9:50 AM EST Plan of Treatment Upcoming Encounters Date Type Department Care Team (Late st Contact Info) Description 12/06/2025 9:30 AM EST Office Visit [facility] ADULT DENTAL [address] [place] [address] Sunny, Valentina [address] [place] [address] Health Maintenance Due Date Last Done Comments HPV Vaccines (3 - 3-dose series) 02/28/2024 12/06/2023, 07/19/2013 COVID-19 Vaccine (2024- season) 2025 11/13/2022, 03/05/2021, 02/05/2021 Influenza Vaccine (#1) 2025 , 12/12/2021, 08/21/2020, Additional history exists Dental Oral Exam 09/28/2025 03/28/2025, 09/2022, 01/29/2022, Additional history exists Dental Prophylaxis 09/28/2025 03/28/2025, 1 , 01/29/2022, Additional history exists SDOH Screening 02/07/2026 02/07/2025 Disability Screening 02/16/2026 02/16/2025 Alcohol/Substance Use Screening 02/19/2026 02/19/2025 Family Planning (PISQ) 03/26/2026 03/26/2025 Dental X-Ray: Bitewings 03/29/2026 03/28/20, 01/29/2022, 08/10/2019, Additional history exists Depression Monitoring 04/09/2026 10/09/2025, 025 Tobacco Screening 10/09/2026 10/09/2025 DTaP/Tdap/Td Vaccines (8 - Td or Tdap) [...] 10/09/2025 11:26 AM EST Left foot pain XR HAND 2 VW BILATERAL Routine 10/09/2025 11:23 AM EST PROPHYLAXIS - ADULT Routine 03/28/2025 9 :30 AM EDT Dental calculus Gingival bleeding INTRAORAL - COMPLETE SERIES OF RADIOGRAPHIC IMAGES Routine 03/28/2025 9:30 AM EDT Dental calculus Tooth impaction Gingival bleeding Missing teeth, acquired PERIODIC ORAL EVALUATION - ESTABLISHED PATIENT Routine 03/28/2025 9:30 AM EDT Dental calculus Tooth impaction Gingival bleeding Missing teeth, acquired HEPATITIS C AB W/REFL TO HCV RNA, [...] Recently Relevant to Health Maintenance Results * XR Foot 3+ Views Left (10/09/2025 11:26 AM EST) Anatomical Region Laterality Modality Lower Extremities, Foot Left Radiogra phic Imaging 10/09/2025 11:2 6 AM EST Narrative 10/09/2025 11:25 [place] [address] XRay Report Signed Patient: Gely Amaro MR# : [id number] : 1995 Acct:[id number] Age/Sex: 29 / F ADM Date: 10/09/25 Loc: HO.HHCX Attending Dr: Sayra Link MD Ordering Physician: Sayra Link Date of Service: 10/09/25 Procedure(s): XR foot LT min 3V Accession Number(s): [id number] cc: Sayra Link Reason for Exam: pain [...] 10/09/25 1123 DD/ 1126 TD/TT: 10/09/25 1119 Senior C Software Engineer: Procedure Note Donotuseinterpreter, Image - 10/09/[address] [address] XRay Report Signed Patient: Gely Amaro MMR# : [id number] : 1995Acct:[id number] Age/Sex: 29 / FADM Date: 10/09/25 Loc: HO.HHCX Attending Dr: Sayra Link MD Ordering Physician: Sayra Link Date of Service: 10/09/25 Procedure(s): XR foot LT min 3V Accession Number(s): [id number] cc: Sayra Link Reason for Exam: pain [...] 10/09/25 1123 DD/ 1126 TD/TT: 10/09/25 1119 Senior C Software Engineer: Sayra Link MD IMG XR PROCEDURES Edited Resul t - Final * XR HAND 2 VW BILATERAL (10/09/2025 11:23 AM EST) Anatomical Region Laterality Modality Radiographic Gabbie ging 10/09/2025 11:2 3 AM EST Narrative 10/09/2025 11:28 AM EST [address] [address] XRay Report Signed Patient: Gely Amaro MR# : [id number] : 1995 Acct:[id number] Age/Sex: 29 / F ADM Date: 10/09/25 Loc: HO.HHCX Attending Dr: Sayra Link MD Ordering Physician: Sayra Link Date of Service: 10/09/25 Procedure(s): XR Hand Uzair 2V Accession Number(s): [id number] cc: Sayra Link Reason for Exam: PAIN Exam: XR HAND 2 VIEWS BILATERAL, bilateral hand x-rays TECHNIQUE: AP and lateral views upper extremity, bilateral hands INDICATION: PAIN COMPARISON: None available. FINDINGS: RIGHT HAND: No acute fracture, degenerative changes, erosions, or other abnormalities. LEFT HAND: No acute fracture, degenerative changes, erosions, or other abnormalities. XR/XR Hand Uzair 2V IMPRESSION: Right hand: Unremarkable right hand Left hand: Unremarkable left hand Electronically signed by: Reuben Lozano MD 10/09/2025 11:25 AM EST Dictated By: Reuben Lozano MD Signed By: <Electronically signed by Reuben Lozano MD in OV> 10/09/25 1125 DD/ 1123 TD/TT: 10/09/25 1119 Senior C Software Engineer: Procedure Note Donotuseinterpreter, Image - 10/09/[address] [address] XRay Report Signed Patient: Gely Amaro MMR# : [id number] : 1995Acct:[id number] Age/Sex: 29 / FADM Date: 10/09/25 Loc: HO.HHCX Attending Dr: Sayra Link MD Ordering Physician: Sayra Link Date of Service: 10/09/25 Procedure(s): XR Hand Uzair 2V Accession Number(s): [id number] cc: Sayra Link Reason for Exam: PAIN Exam: XR HAND 2 VIEWS BILATERAL, bilateral hand x-rays TECHNIQUE: AP and lateral views upper extremity, bilateral hands INDICATION: PAIN COMPARISON: None available. FINDINGS: RIGHT HAND: No acute fracture, degenerative changes, erosions, or other abnormalities. LEFT HAND: No acute fracture, degenerative changes, erosions, or other abnormalities. XR/XR Hand Uzair 2V IMPRESSION: Right hand: Unremarkable right hand Left hand: Unremarkable left hand Electronically signed by: Reuben Lozano MD 10/09/2025 11:25 AM [facility] Dictated By: Reuben Lozano MD Signed By: <Electronically signed by Reuben Lozano MD in OV> 10/09/25 1125 DD/ 1123 TD/TT: 10/09/25 1119 Senior C Software Engineer: us Sayra Link MD IMG XR PROCEDURES Edited Resul t - Final * Hepatitis C Antibody with Reflex to HCV, RNA, Quantitative, Real-Time PCR (01/08/2025 10:07 AM EDT) Hepatitis C Antibody Nonreactive Nonreactive [facility] Comment:Antibodies to HCV no t detected; does not exclude early acuteHCV infection. Blood Venous blood specimen / Unknown 01/08/2025 10:07 AM EDT 01/08/2025 11:18 AM EDT us Millicent Dominguez [facility] LAB BLOOD ORDERABLES Cherie saravia Result [facility] [address] [place] [phone] * HIV-1/2 Antigen and Antibodies, Fourth Generation, with Reflexes (01/08/2025 10:07 AM EDT) HIV AB/AG Nonreactive Nonreactive [facility] Comment:HIV-1 p24 Ag and/or HIV-1/HIV-2 Ab not detected.A test result that is nonreactive does not exclude thepossibility of exposure to or infection with HIV-1 and/orHIV-2. Nonreactive results in this assay for individualswith prior exposure to HIV-1 and/or HIV-2 may be due toantigen and antibody levels that are below the limit ofdetection of this assay.The [employer] HIV Ag/Ab Combo assay result andsupplemental assay results should be interpreted inconjunction with the patient's clinical presentation,history and other laboratory results. If the results areinconsistent with clinical evidence, additional testing issuggested to confirm the result. Blood Venous blood specimen / Unknown 01/08/2025 10:07 AM EDT 01/08/2025 11:18 AM EDT us Millicent Dominguez [facility] LAB BLOOD ORDERABLES Cherie l Result [facility] [address] [place] [phone] * HPV DNA, Low/High Risk (01/08/2025 9:17 AM EDT) HPV High Risk Negative Negative [facility] HPV Genotype 16 Negative Negative [facility] HPV Genotype 18 Negative Negative [facility] Comment:HPV testing performe d at [facility] (CLIA#[id number]), [address] [place] [address].Testing for HPV was performed using the [employer] [...] 9:17 AM EDT 01/09/2025 6:00 AM EDT us Millicent Dominguez CNM LAB BLOOD ORDERABLES Cherie rani Result [facility] [address] [place] [phone] * Pap Smear (01/08/2025 9:17 AM EDT) Swab Cervix uteri structure / Unknown 01/08/2025 9:17 AM EDT 01/09/2025 6:00 AM EDT Narrative [facility] - 01/24/2025 12:33 PM EDT ----- ------- Name: Daron Gely Guerra Age/Sex: 29/F : 1995 Unit#: [id number] Amy Dr: Re01/08/25 Status: PRE REF Location: [facility] Disch: ----- ------- SPEC : [id number] RECD: 01/09/25-599 STATUS: [place] GONZALES NUM: [id number] CHEIKH: 01/08/25 [facility] DR: MILLICENT DOMINGUEZ CNM ENTERED: 01/09/25 SP TYPE: Pap Smr OTHR DR: ORDERED: Pap Smear Interpretation Satisfactory for evaluation. Negative for intraepithelial lesion or malignancy. Mild inflammation. HPV High Risk: Negative HPV Genotyping 16: Negative HPV Genotyping 18: Negative Clinical Information LMP: Unknown date Previous PAP test: 2021 NIL, WNL Material Received Cervix ----- ------- Signed (signature on file) BRIAN Barkley (ASCP) 01/24/25 1233 ----- ------- END OF REPORT Millicent Dominguez CNM LAB CYTOLOGY ORDERABLES F inal Result [facility] [address] [place] [phone] from Last 3 Months or Most Recently Relevant to Health Maintenance [place] [address] [place] [address] C3 [employer] [employer] [place] AD[place] Care Teams Gravity Prospector Relationship Specialty Start Date End Date Sayra Link MD [address] [place] [address] PCP - General Family Medicine 10/03/20
--- OUTSIDE RECORDS SUMMARY | 2025-10-09 14:14 | XMS_ITS | Encounter Summary ---
Author Organization [employer] Address [address] [facility] 7t [place] [address] Care Team Providers Care Weblogic Developer Name Role Phone Sayra Link MD Primary Care Provider [phone] Reason for Visit * Reason Onset Date Comments Chart Prep 10/08/2025 Encounter Details Date Type Department Care Team ([facility] Contact Info) Description 10/08/2025 Telephone [facility] MEDICINE [address] [place] [address] Sayra Link MD [address] [place] [address] Chart Prep Social History Tobacco Use Types Packs/Day Years Used Date Smoking Tobacco: Never Smokeless Tobacco: Never Alcohol Use Standard Drinks/Week Comments Never 0 [...] AM EST documented as of this encounter Miscellaneous Notes * Telephone Encounter - Sara Farnsworth [place] - 10/08/2025 9:40 AM EST Chart Prep Labs: done Images: not applicable Referrals: appointment pending Vaccines due: Covid, Flu, and HPV Screenings: LMP Overdue care gaps: PHQ-9 and DAYRON-7 documented in this encounter Plan of Treatment Upcoming Encounters Date Type Department Care Team (Late st Contact Info) Description 12/06/2025 9:30 AM EST Office Visit [facility] ADULT DENTAL [address] [place] [address] Sunny, Valentina [address] [place] [address] documented as of this encounter Visit Diagnoses Not on filedocumented in this encounter Additional Health Concerns Assessment Noted Time PHQ-9 Depression Total Score: 17 025 1:44 PM EDT documented as of this encounter Care Teams Weblogic Developer Relationship Specialty Start Date End Date Sayra Link MD [address] [place] [phone] PCP - General Family Medicine 10/03/20 documented as of this encounter
--- OUTSIDE RECORDS SUMMARY | 2025-10-09 14:14 | XMS_ITS | Encounter Summary ---
Author Organization [employer] Address [address] [facility] [address]t [place] [address] Care Team Providers Care Senior Accounts Payable Clerk Name Role Phone Sayra Link MD Primary Care Provider [phone] Encounter Details Date Type Department Care Team (Latest Contact Info) Description 10/09/2025 Travel Social History Tobacco Use Types Packs/Day Years [...] AM EST documented as of this encounter Functional Status * Over the [...] Author Nearly every day 10/09/2025 11:31 AM EST Ema Tineo [place] * Trouble falling or staying asleep, [...] Author Nearly every day 10/09/2025 11:31 AM EST Ema Tineo [place] * Feeling bad about yourself - or that you are a failure or have let yourself or your family down Answer Date of Assessment Author Nearly every day 10/09/2025 11:31 AM EST Ema Tineo [place] * Trouble concentrating on things, such [...] Questionnaire-9 Score Answer Date of Assessment Author 20 10/09/2025 11:31 AM Ema Guardado [place] * [...] Assessment Author Very difficult 10/09/2025 11:31 AM EST Ema Salas [place] documented as of this encounter Plan of Treatment Upcoming Encounters Date Type Department Care Team (Late st Contact Info) Description 12/06/2025 9:30 AM EST Office Visit [facility] ADULT DENTAL [address] [place] [address] Jeffrey Correaaris [address] [place] [address] documented as of this encounter Visit Diagnoses Not on filedocumented in this encounter Additional Health Concerns Assessment Noted Time PHQ-9 Depression Total Score: 20 025 11:31 AM EST documented as of this encounter Care Teams Senior Accounts Payable Clerk Relationship Specialty Start Date End Date Sayra Link MD [address] [place] [address] PCP - General Family Medicine 10/03/20 documented as of this encounter
--- OUTSIDE RECORDS SUMMARY | 2025-10-09 14:14 | XMS_ITS | Encounter Summary ---
Author Organization [employer] Address [address] [facility] [address]t [place] [address] Care Team Providers Care Apparel Merchandiser Name Role Phone Sayra Link MD Primary Care Provider [phone] Encounter Details Date Type Department Care Team (Latest Contact Info) Description 06/30/2019 Abstract [facility] CONVERSIONS Dental, Provider, DDS Social History Tobacco [...] Description 12/06/2025 9:30 AM EST Office Visit [facility] ADULT DENTAL [address] [place] [address] Sunny, Valentina [address] [place] [address] documented as of this encounter Visit Diagnoses Not on filedocumented in this encounter Care Teams Apparel Merchandiser Relationship Specialty Start Date End Date Sayra Link MD [address] [place], [place] [phone] PCP - General Family Medicine 10/03/20 documented as of this encounter
--- OUTSIDE RECORDS SUMMARY | 2025-10-09 14:14 | XMS_ITS | Encounter Summary ---
Author Organization [employer] Address [address] [facility] [address] [place] [address] Care Team Providers Care Needle Polisher Name Role Phone Sayra Link MD Primary Care Provider [phone] Encounter Details Date Type Department Care Team ([facility] st Contact Info) Description 10/09/2025 Orders Only [facility] MEDICINE [address] [place] [address] Sayra Link MD [address] [place] [address] Social History Tobacco Use Types Packs/Day Years [...] Description 12/06/2025 9:30 AM EST Office Visit [facility] ADULT DENTAL [address] [place] [address] Jeffrey Correaaris [address] [place] [address] documented as of this encounter Procedures Procedure Name Priority Date/Time Associated Diagnosis Comments XR HAND 2 VW BILATERAL Routine 10/09/2025 11:23 AM EST documented in this encounter Results * XR HAND 2 VW BILATERAL (10/09/2025 11:23 AM EST) Anatomical Region Laterality Modality Radiographic Gabbie ging 10/09/2025 11:2 3 AM EST Narrative 10/09/2025 11:28 AM EST [facility] [address] [place] [address] XRay Report Signed Patient: Gely Amaro MR# : [id number] : 1995 Acct:[id number] Age/Sex: 29 / F ADM Date: 10/09/25 [facility]: Sayra Link MD Ordering Physician: Sayra Link Date of Service: 10/09/25 Procedure(s): XR Hand Uzair 2V Accession Number(s): [id number] cc: Sayra Link Reason for Exam: PAIN [...] 10/09/25 1125 DD/ 1123 TD/TT: 10/09/25 1119 Field Observer: Procedure Note Donotuseinterpreter, Image - 10/09/2025 [place] [address] XRay Report Signed Patient: Gely Amaro MMR# : [id number] : 1995Acct:[id number] Age/Sex: 29 / FADM Date: 10/09/25 Loc: HO.HHCX Attending Dr: Sayra Link MD Ordering Physician: Sayra Link Date of Service: 10/09/25 Procedure(s): XR Hand Uzair 2V Accession Number(s): [id number] cc: Sayra Link Reason for Exam: PAIN [...] 10/09/25 1125 DD/ 1123 TD/TT: 10/09/25 1119 Field Observer: Sayra Link MD IMG XR PROCEDURES Edited Resul t - Final documented in this encounter Visit Diagnoses Not on filedocumented in this encounter Additional Health Concerns Assessment Noted Time PHQ-9 Depression Total Score: 20 025 11:31 AM EST documented as of this encounter Care Teams Needle Polisher Relationship Specialty Start Date End Date Sayra Link MD [address] [place] [address] PCP - General Family Medicine 10/03/20 documented as of this encounter
[2025-10-09 22:41] LABS: Bacterial Vaginosis PCR NEGATIVE (Negative); Candida Group PCR NOT DETECTED (Not Detect); Candida glab krusei PCR NOT DETECTED (Not Detect); Trichomonas vaginalis PCR NOT DETECTED (Not Detect)
== END 2025-10-09 10:54 | disposition home or self-care (01) ==
LOC: HO.HHCX 10:53
PROVIDERS: PCP General Practice; Visit Provider General Practice
DX: M79.672 Pain in left foot (principal); R39.198 Other difficulties with micturition; Z20.2 Contact with and (suspected) exposure to infections with a predominantly sexual mode of transmission
CPT/HCPCS: 73120; 73630; 81515

== ENCOUNTER → 2025-10-09 10:59 | Outpatient (BNV) | payer MEDICAID, SELFPAY | PROVIDERS: PCP General Practice; Visit Provider Radiology Diagnostic Radiology | DX: M79.672 Pain in left foot (principal); M79.642 Pain in left hand; M79.641 Pain in right hand | CPT/HCPCS: 73120; 73630 ==